=== PATIENT | female | born 1975 | race Two or more races ===

== ENCOUNTER 2020-11-05 19:12 | Emergency (ER) | payer SELFPAY ==
[~2020-11-05] VITALS: Ht 152.4 cm; Wt 61.1 kg
--- NOTE | 2020-11-05 19:22 | NUR ---
CC OF "I THINK I HAVE A REALLY BAD HEMMORHOID" X 2 DAYS, C/O ITCHING AND PAIN. STATES SHE HAS HAD THIS BEFORE BUT "NOT THIS BAD".
[2020-11-05 19:52] LABS: BASOPHILS % (AUTO) 2 % (0-1); EOSINOPHILS % (AUTO) 1 % (1-7); LYMPHOCYTES % (AUTO) 18 % (22-44); MEAN CORPUSCULAR HEMOGLOBIN 23.7 pg (27.0-34.8); MEAN CORPUSCULAR HGB CONC 31.6 g/dL (32.4-35.8); MEAN PLATELET VOLUME 6.5 fL (7.4-10.4); MONOCYTES % (AUTO) 6 % (2-9); NEUTROPHILS % (AUTO) 74 % (42-75); PLATELET COUNT 382 x10^3/uL (130-400); RED BLOOD COUNT 3.13 x10^6/uL (3.82-5.3); RED CELL DISTRIBUTION WIDTH 20.7 % (9.6-15.2)
[2020-11-05 19:59] LABS: ALBUMIN 3.5 g/dL (3.4-5.0); ANION GAP 8 mmol/L (5-15); CALCIUM 8.3 mg/dL (8.5-10.1); CHLORIDE 107 mmol/L (98-107); CREATININE 0.83 mg/dL (0.55-1.02)
[2020-11-05 20:02] LABS: MD MORPH REVIEW ONLY
[2020-11-05 20:24] LABS: ANISOCYTOSIS 1+; HYPOCHROMIA 1+; MICROCYTOSIS 1+; OVALOCYTES 1+; POLYCHROMASIA 1+; STOMATOCYTES 1+
[2020-11-05 20:27] LABS: <PLATELET ESTIMATE> ADEQUATE
[2020-11-05 20:28] LABS: SMALL PLATELETS 1+
[2020-11-05 21:07] VITALS: BP 158/78
== END 2020-11-05 21:09 | disposition home or self-care (01) ==
LOC: ED 20:30
DX: K64.8 Other hemorrhoids (principal); D50.9 Iron deficiency anemia, unspecified
CPT/HCPCS: 36415; 80048; 82040; 82728; 83540; 83550; 85025; 99283